=== PATIENT | female | born 1965 | race Caucasian/White ===

== ENCOUNTER 2019-11-30 18:08 | Emergency (ER) | payer OTHER, SELFPAY ==
[2019-11-30 18:23] VITALS: BP 163/96; PULSE 119; RESP 16; TEMP 37; O2SAT 99; BMI 67.1
[2019-11-30] MEDS: ONDANSETRON 4 MG ODT SL (19:16)
[2019-11-30] MEDS: ACETAMINOPHEN 325 MG TABLET 975 MG PO (19:16)
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
[2019-11-30 19:37] VITALS: BP 160/96; PULSE 96; RESP 14; O2SAT 100
== END 2019-11-30 19:38 | disposition home or self-care (01) ==
PROVIDERS: Emergency Provider Emergency Medicine
DX: S06.0X0A Concussion without loss of consciousness, initial encounter (principal); S16.1XXA Strain of muscle, fascia and tendon at neck level, initial encounter; W22.8XXA Striking against or struck by other objects, initial encounter
CPT/HCPCS: 99282